=== PATIENT | male | born 1950 | race Caucasian/White ===

== ENCOUNTER 2018-10-31 15:52 | Emergency (ER) | payer BC ==
--- NOTE | 2018-10-31 16:06 | PDOC ---
Rapid Medical Evaluation Time Seen by Provider: 10/31/18 16:03 Medical Evaluation: Allergies Allergy/AdvReac Type Severity Reaction Status Date / Time No Known Allergies Allergy Verified 12/11/12 16:06 10/31/18 16:03 Pt c/o: walked into a ceiling door today and has no loc, no c/o visual changes, feels slightly weak, no nausea , change in gait pt on brief exam: aox 3, perrl, Pt ordered for: head ct pt to proceed to the ED Discharge Disposition - Diagnosis Closed head injury - Referrals - Patient Instructions - Post Discharge Activity
[2018-10-31 16:07] VITALS: BP 179/94; PULSE 71; BMI 27.1
--- NOTE | 2018-10-31 17:40 | PDOC ---
History of Present Illness - General Chief Complaint: Injury Stated Complaint: INJURY TO HEAD Time Seen by Provider: 10/31/18 16:03 History Source: Patient Exam Limitations: No Limitations - History of Present Illness Initial Comments: 10/31/18 17:35 HISTORY OF PRESENT ILLNESS: This 68-year-old male with past medical history of hypertension presents emergency department for evaluation of head trauma. Patient states this morning he walked into a dark room or the attic door was slightly open. Patient reports he struck the top of his head on the open door fallen to the ground after impact. He denies any loss of consciousness nasal recollection of events immediately prior to, during and after the event. Patient reported feeling lightheaded immediately after the injury but did not lose consciousness. He denies any nausea or vomiting since the injury. No recent travel or sick contacts. PAST MEDICAL HISTORY: HTN SURGICAL HISTORY: Denies ALLERGIES: No known drug allergies REVIEW OF SYSTEMS General/Constitutional: Denies fever or chills. Denies weakness, weight change. HEENT: Denies change in vision. Denies ear pain or discharge. Denies sore throat. Cardiovascular: Denies chest pain or shortness of breath. Respiratory: Denies cough, wheezing, or hemoptysis. Gastrointestinal: Denies nausea, vomiting, diarrhea or constipation. Denies rectal bleeding. Genitourinary: Denies dysuria, frequency, or change in urination. Musculoskeletal: Denies joint or muscle swelling or pain. Denies neck or back pain. Skin and breasts: Denies rash or easy bruising. Neurologic: Superficial left sided headache. Denies vertigo, loss of consciousness, or loss of sensation. Psychiatric: Denies depression or anxiety. Endocrine: Denies increased thirst. Denies abnormal weight change. Hematologic/Lymphatic: Denies anemia, easy bleeding, or history of blood clots. Allergic/Immunologic: Denies hives or skin allergy. Denies latex allergy. PHYSICAL EXAM General Appearance: Well-appearing, appropriately dressed. No apparent distress , no intoxication. HEENT: EOMI, PERRLA, normal ENT inspection, normal voice, TMs normal, pharynx normal. No conjunctival pallor. No photophobia, scleral icterus. No septal hematomas. No hemotympanum. No palpable deformity to skull. Skin intact. Neurologic: behavioral therapist II-XII intact. Fully oriented, alert. Appropriate mood/affect. Motor strength 5/5. No appreciable EOM palsy, facial droop or sensory deficit. Strength 5/5 to all extremities. Past History - Past Medical History Allergies/Adverse Reactions: Allergies Allergy/AdvReac Type Severity Reaction Status Date / Time No Known Allergies Allergy Verified 12/11/12 16:06 Home Medications: Ambulatory Orders Alfuzosin HCl [Uroxatral] 10 mg PO DAILY 12/11/12 Esomeprazole Mag Trihydrate [Nexium] 40 mg PO DAILY 12/11/12 Olmesartan Medoxomil [Benicar -] 40 mg PO DAILY 12/11/12 Oseltamivir Phosphate [Tamiflu] 75 mg PO BID #0 capsule 12/12/12 levoFLOXacin [Levaquin] 500 mg PO DAILY #1 tablet 12/12/12 Anemia: No Asthma: No Cancer: No Cardiac Disorders: No CVA: No COPD: No CHF: No Dementia: No Diabetes: No GI Disorders: Yes (REFLUX) Disorders: No HTN: Yes Hypercholesterolemia: No Liver Disease: No Seizures: No Thyroid Disease: No - Surgical History Abdominal Surgery: No Appendectomy: No Cardiac Surgery: No Cholecystectomy: No Lung Surgery: No Neurologic Surgery: No Orthopedic Surgery: Yes ((L) KNEE SX) - Immunization History Immunization Up to Date: Yes - Suicide/Smoking/Psychosocial Hx Smoking Status: No Smoking History: Never smoked Have you smoked in the past 12 months: No Number of Cigarettes Smoked Daily: 0 Hx Alcohol Use: No Drug/Substance Use Hx: No Substance Use Type: None Hx Substance Use Treatment: No *Physical Exam - Vital Signs Last Vital Signs Temp Pulse Resp BP Pulse Ox 71 16 179/94 H 97 10/31/18 16:04 10/31/18 16:04 10/31/18 16:04 10/31/18 16:04 Moderate Sedation - Procedure Monitoring Vital Signs: Procedure Monitoring Vital Signs Temperature Pulse Rate 71 10/31/18 16:04 Respiratory Rate 16 10/31/18 16:04 Blood Pressure 179/94 H 10/31/18 16:04 O2 Sat by Pulse Oximetry (%) 97 10/31/18 16:04 Medical Decision Making - Medical Decision Making 10/31/18 17:42 A/P: 68-year-old man with head trauma this morning CT of the head as read by Dr. Boateng: No CT evidence of acute cranial pathology. Mild to moderate bilateral ethmoid sinus mucosal thickening suggestive of sinusitis questionable acute versus chronic. Correlate clinically I will discharge the patient home as he has a normal neurologic exam with strict return precautions. I discussed the physical exam findings, ancillary test results and final diagnoses with the patient. I answered all of the patient's questions. The patient was satisfied with the care received and felt comfortable with the discharge plan and treatment plan. The patient will call their primary care physician within 24 hours to arrange follow-up and will return to the Emergency Department with any new, persistent or worsening symptoms. *DC/Admit/Observation/Transfer Diagnosis at time of Disposition: Closed head injury Qualifiers: Encounter type: initial encounter Qualified Code(s): S09.90XA - Unspecified injury of head, initial encounter Concussion Qualifiers: Encounter type: initial encounter Loss of consciousness presence/duration: without LOC Qualified Code(s): S06.0X0A - Concussion without loss of consciousness, initial encounter - Discharge Dispostion Disposition: HOME Condition at time of disposition: Stable Decision to Admit order: No - Referrals Referrals: Gen Mcintosh [Primary Care Provider] - - Patient Instructions Printed Discharge Instructions: DI for Closed Head Injury, DI for Concussion Additional Instructions: Avoid electronic devices including computers, tablets, phones and television. Avoid reading. your child should not go to school until next week and should not perform any academic testing until evaluated by her business applications specialist. Follow-up with the child's business applications specialist within the next week for reevaluation. Child symptoms may last for 4-6 weeks. This is normal. If the child sustains another head injury the time period would restart. Return to the emergency department for any new or worsening symptoms. - Post Discharge Activity Forms/Work/School Notes: Back to Work
== END 2018-10-31 17:47 | disposition home or self-care (01) ==
LOC: JERFT 15:52
DX: S06.0X0A Concussion without loss of consciousness, initial encounter (principal); W18.09XA Striking against other object with subsequent fall, initial encounter; Y93.01 Activity, walking, marching and hiking; Y92.018 Other place in single-family (private) house as the place of occurrence of the external cause; Y99.8 Other external cause status; I10 Essential (primary) hypertension; K21.9 Gastro-esophageal reflux disease without esophagitis
CPT/HCPCS: 70450-TC; 99281-25